=== PATIENT | female | born 1955 | race Caucasian/White ===

== ENCOUNTER 2018-10-04 07:31 | Day surgery (SDC) | payer OTHER ==
--- NOTE | 2018-09-21 21:42 | CONS ---
DATE OF ADMISSION: 10/04/2018 DATE OF CONSULTATION: 10/04/2018 TYPE OF CONSULTATION: Preoperative gastroenterology. Dear Dr. Lance: I thank you very much for this kind referral. HISTORY OF PRESENT ILLNESS: Ms. Esme Brumfield is a 62-year-old female patient who has been referred to me for further evaluation of positive occult blood in stool. No past history of colon neoplasm. The patient never had screening colonoscopy. Appetite is good, no weight loss. No upper abdominal pain. The patient is on baby aspirin a day. No history of gallstones or liver disease. The patient is hypertensive. Not a diabetic. No heart disease, lung problem or kidney disease. Has hyperlipid emia. SOCIAL HISTORY: Nonsmoker. No alcohol abuse. FAMILY HISTORY: No family history of gastrointestinal tract neoplasm. ALLERGIES: NO DRUG ALLERGIES. MEDICATIONS: 1. Losartan. 2. Atorvastatin. 3. Aspirin 81 mg. PHYSICAL EXAMINATION: VITAL SIGNS: She is 5 feet 4 inches tall and weighs 165 pounds. HEART: Normal heart sounds. LUNGS: Clear. ABDOMEN: Soft, no masses. Normal bowel sounds. NEUROLOGIC: Normal neurological exam. IMPRESSION: 1. Positive occult blood in stool. 2. The patient never had screening colonoscopy. 3. Hypertension. 4. Hyperlipidemia. 5. The patient is on baby aspirin a day. PLAN: Screening colonoscopy. The procedure and possible complications are well explained to the patient. She understands and cons ents to the procedure. I thank you once again. With warmest personal regards, Dictated By: SONDRA MIRELES/YUAN Conf#: [id number] DID#: [id number]
[~2018-10-04] VITALS: Ht 162.6 cm; Wt 75.0 kg
[~2018-10-04 07:31] MED LIST: LOSA25TA12 PO
[2018-10-04 08:30] VITALS: Ht 162.6 cm; Wt 75.0 kg
[2018-10-04] MEDS ORDERED: ASPI-903 PO (08:45)
[2018-10-04] MEDS ORDERED: ATORVASTATIN PO (08:45)
[2018-10-04 09:43] VITALS: BP 162/72; PULSE 88; RESP 20
[2018-10-04] MEDS ORDERED: MIDAZOLAM 1 MG/ML 2 ML INJ ONE ×2 (10:17)
[2018-10-04] MEDS ORDERED: FENTAnyl 50 MCG/ML VIAL ONE (10:17)
[2018-10-04 10:49] VITALS: BP 163/92; RESP 24
== END 2018-10-04 11:20 | disposition home or self-care (01) ==
LOC: GIL 07:31
PROVIDERS: ATTEND Internal Medicine Gastroenterology
DX: Z12.11 Encounter for screening for malignant neoplasm of colon (principal); K64.8 Other hemorrhoids; I10 Essential (primary) hypertension; E78.5 Hyperlipidemia, unspecified; Z79.82 Long term (current) use of aspirin
CPT/HCPCS: 45378; J2250; J3010; Z7610